=== PATIENT | female | born 2000 | race Caucasian/White ===

== ENCOUNTER 2023-04-10 01:30 | Emergency (ER) | payer BC, SELFPAY ==
[2023-04-10 01:44] VITALS: BP 139/88; PULSE 100; RESP 17; TEMP 36.7; O2SAT 96; BMI 31.6
--- NOTE | 2023-04-10 01:50 | USR_ITS ---
PROCEDURE INFORMATION: Exam: US Abdomen, Limited; Right Upper Quadrant Exam date and time: 04/10/2023 2:25 AM Age: 23 years old Clinical indication: Abdominal pain; Epigastric; Patient HX: Ruq pain, n+v plus diarrhea x 8 days. TECHNIQUE: Imaging protocol: Real time ultrasound of the abdomen with image documentation. Limited exam focused on the right upper quadrant. COMPARISON: No relevant prior studies available. FINDINGS: Liver: Normal. No masses. Gallbladder: There is gallbladder sludge. Biliary ducts: Common bile duct diameter is 4 mm. Pancreas: Click non Viz pancreas Right kidney: Normal. No mass. No hydronephrosis. Aorta: Visualized portions of the aorta and IVC are normal. US/US gall bladder [id number] IMPRESSION: There is gallbladder sludge.
--- NOTE | 2023-04-10 01:52 | ED_ITS ---
HPI - Abdominal Pain General: Chief Complaint: Abdominal Pain Stated Complaint: abdomen pain x8 days Time Seen by Provider: 04/10/23 01:32 Source: patient Mode of arrival: ambulatory Limitations: no limitations History of Present Illness: 23-year-old female states been having intermittent abdominal pain over the last 8 days states she had some intermittent vomiting and diarrhea as well. States her pain is sharp in nature when it comes and it is in her epigastric and right upper quadrant states her pain currently is a 5 out of 10 denies any worsening proving factors denies any dysuria or vaginal bleeding. Associated Symptoms: Reports diarrhea, nausea and vomiting; Denies chills, dysuria and fever(s) Review of Systems Const: Denies: fever(s), chills or body aches ENMT: Denies: throat pain or dental pain Card: Denies: chest pain Resp: Denies: dyspnea GI: Reports: abdominal pain, nausea, vomiting and diarrhea : Denies: dysuria Musc: Denies: neck pain or back pain Skin/Breast: Denies: rash Neuro: Denies: headache(s) Psych: Denies: depression Stan/Lymph: Denies: easy bruising All/Imm: Denies: urticaria PFSH ED PFSH: Medical History (Updated 04/10/23 @ 03:34 by Brenda Mcmullen MD) No pertinent past medical history Social History (Updated 04/10/23 @ 01:53 by Brenda Mcmullen MD) Substance/Drug Use: never Physical Exam Const: COMMON NORMALS: no acute distress, patient oriented x3 and healthy appearing HENMT: COMMON NORMALS: normocephalic and atraumatic HEAD & SCALP: normocephalic and atraumatic Eye: COMMON NORMALS: conjunctivae normal CONJUNCTIVA: Yes conjunctivae normal Neck/C-Spine: COMMON NORMALS: full ROM and supple Chest: COMMONS NORMALS: normal inspection of the chest and normal palpation of entire chest wall Resp: COMMON NORMALS: normal respiratory effort, No retractions, No use of accessory muscles and clear to auscultation bilaterally AUSCULTATION: clear to auscultation bilaterally Cardio: COMMON NORMALS: regular rate, regular rhythm and No murmurs present (Cardio) RATE: regular rate RHYTHM: regular rhythm GI: COMMON NORMALS: Normal to inspection, nondistended, normoactive bowel sounds present, Soft to palpation and no masses PALPATION: Yes Soft to palpation OTHER: mild ruq tenderness Extremity: COMMON NORMALS: normal to inspection and full ROM Neuro: COMMON NORMALS: patient oriented x3, moves all extremities and no focal motor deficits Psych: COMMON NORMALS: mental status grossly normal, Normal thought process present and cooperative THOUGHT PROCESS: Normal thought process present Skin: COMMON NORMALS: no rashes or lesions noted and no wounds GENERAL SKIN EXAM: no rashes or lesions noted Course Vital Signs: Vital signs: Vital Signs Temperature 98.0 F 04/10/23 01:44 Pulse Rate 100 04/10/23 01:44 Respiratory Rate 17 04/10/23 01:44 Blood Pressure 139/88 04/10/23 01:44 Pulse Oximetry 99 04/10/23 02:29 Oxygen Delivery Me thod Room Air 04/10/23 01:44 MDM - Abdominal Pain Medical Decision Making Patient presented abdominal pain vomiting she does have some dehydration she feels improved after fluids and Zofran ultrasound and CT scan are normal she is stable for discharge we will prescribe her Zofran for home and get her follow-up with surgery she is return if worsening she understands agrees to plan. Differential Diagnosis Likely abdominal pain; Unlikely acute appendicitis, calculus of kidney, diverticulitis, pancreatitis or small bowel obstruction Medical Records I reviewed the patient's medical records. Lab Data I reviewed the patient's lab results. 04/10/23 02:01 04/10/23 02:01 Labs/Radiology: Radiology Impressions Gallbladder Ultrasound 04/10/23 01:50 IMPRESSION: There is gallbladder sludge. Abdomen/Pelvis CT 04/10/23 02:51 IMPRESSION: No acute findings. Laboratory Results WBC 13.4 10^3/uL (4.0-10.0) H 04/10/23 02:01 RBC 5.24 10^6/uL (4.1-5.3) 04/10/23 02:01 Hgb 14.9 g/dL (11.5-15.3) 04/10/23 02:01 Hct 44.2 % (37.0-47.0) 04/10/23 02:01 MCV 84.4 fl (81-99) 04/10/23 02:01 MCH 28.4 pg (28.0-34.0) 04/10/23 02:01 MCHC 33.7 g/dL (30.0-36.0) 04/10/23 02:01 RDW 13.0 % (12.1-15.1) 04/10/23 02:01 Plt Count 309 10^3/cmm (130-400) 04/10/23 02:01 MPV 10.1 fL (7.4-10.4) 04/10/23 02:01 Neut % (Auto) 67.3 % 04/10/23 02:01 Lymph % (Auto) 23.7 % 04/10/23 02:01 [place] % (Auto) 7.9 % 04/10/23 02:01 Eos % (Auto) 0.6 % 04/10/23 02:01 Baso % (Auto) 0.1 % 04/10/23 02:01 Neut # (Auto) 9.04 10^3/uL (1.8-7.7) H 04/10/23 02:01 Lymph # (Auto) 3.2 10^3/uL (0.8-4.8) 04/10/23 02:01 [place] # (Auto) 1.1 10^3/uL (0.2-0.9) H 04/10/23 02:01 Eos # (Auto) 0.1 10^3/uL (0.0-0.8) 04/10/23 02:01 Baso # (Auto) 0.0 10^3/uL (0.0-0.1) 04/10/23 02:01 Nucleated RBC % (auto) 0 % 04/10/23 02:01 Nucleated RBCs # 0.0 /100WBC 04/10/23 02:01 Sodium 137 mmol/L (136-145) 04/10/23 02:01 Potassium 3.6 mmol/L (3.5-5.1) 04/10/23 02:01 Chloride 103 mmol/L (98-107) 04/10/23 02:01 Carbon Dioxide 19 mmol/L (22-29) L 04/10/23 02:01 Anion Gap 18.6 (5-19) 04/10/23 02:01 BUN 8 mg/dL (6-20) 04/10/23 02:01 Creatinine 0.6 mg/dL (0.5-0.9) 04/10/23 02:01 GFR Calculation 125.0 mL/min (90-130) 04/10/23 02:01 Glucose 111 mg/dL (65-115) 04/10/23 02:01 Calculated Osmolality 283 mOsm/kg (285-295) L 04/10/23 02:01 Calcium 9.0 mg/dL (8.5-10.5) 04/10/23 02:01 Total Bilirubin 0.6 mg/dL (0.15-1.2) 04/10/23 02:01 AST 10 U/L (0-32) 04/10/23 02:01 ALT 19 U/L (0-33) 04/10/23 02:01 Alkaline Phosphatase 75 U/L (35-105) 04/10/23 02:01 Total Protein 7.2 g/dL (6.6-8.7) 04/10/23 02:01 Albumin 4.4 g/dL (3.5-5.2) 04/10/23 02:01 Globulin 2.8 g/dL (1.3-4.6) 04/10/23 02:01 Lipase 24 U/L (13-60) 04/10/23 02:01 HCG, Qual Negative (Negative) 04/10/23 02:01 Urine Color Yellow (Yellow) 04/10/23 02:01 Urine Appearance Clear (CLEAR) 04/10/23 02:01 Urine pH 5 (5-7) 04/10/23 02:01 Ur Specific [place] 1.030 (1.005-1.030) 04/10/23 02:01 Urine Protein Neg (Negative) 04/10/23 02:01 Urine Glucose (UA) Norm (Normal) 04/10/23 02:01 Urine Ketones 3+ (Negative) H 04/10/23 02:01 Urine Blood Neg (Negative) 04/10/23 02:01 Urine Nitrate Negative (Negative) 04/10/23 02:01 Urine Bilirubin Neg (Negative) 04/10/23 02:01 Urine Urobilinogen Neg mg/dL (Negative) 04/10/23 02:01 Ur Leukocyte Esterase Negative (Negative) 04/10/23 02:01 EKG Data EKG 1: I personally reviewed and interpreted this EKG as follows: EKG interpretation date: 04/10/23 EKG interpretation time: 01:40 Interpretation: sinus tach hr [address] or t wave abnormalities qrs 100 qtc 407 Discharge Plan Discharge Patient Disposition: Home Clinical Impression: Abdominal pain, Vomiting Prescriptions: New ondansetron 4 mg tablet,disintegrating 4 mg PO Q6H PRN (Reason: nausea and vomiting) Qty: 14 0RF Discharge Orders: Discharge ED (Routine); Ordered 04/10/23 Ordered By: Brenda Mcmullen Referrals: Stone Christensen DO [Physician] - 1-3 days Gurdeep Upton MD [Primary Care Provider] - Discharge Diet: Advance as tolerated Discharge Activity: Resume usual activity Patient Instructions: Acute Nausea and Vomiting (DC), Abdominal Pain (ED) Coding Level of Care 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
[2023-04-10] MEDS: sodium chloride 0.9% 1,000 ML 999 ML IV ×2 (02:00→02:33)
[2023-04-10] MEDS: ondansetron 2 mg/ML SDV 2 mL 4 MG IVP (02:00)
[2023-04-10 02:03] LABS: Add Urine Microscopic? NO; Charge for UA Resulting for Rev
[2023-04-10 02:04] LABS: Basophils % 0.1 %; Eosinophils # 0.1 10^3/uL (0.0-0.8); Eosinophils % 0.6 %; Hematocrit 44.2 % (37.0-47.0); Hemoglobin 14.9 g/dL (11.5-15.3); Lymphocytes # 3.2 10^3/uL (0.8-4.8); Lymphocytes % 23.7 %; Mean Corpuscular HGB Conc 33.7 g/dL (30.0-36.0); Mean Corpuscular Hemoglobin 28.4 pg (28.0-34.0); Mean Corpuscular Volume 84.4 fl (81-99); Mean Platelet Volume 10.1 fL (7.4-10.4); Monocytes # 1.1 10^3/uL (0.2-0.9); Monocytes % 7.9 %; Neutrophils # 9.04 10^3/uL (1.8-7.7); Neutrophils % 67.3 %; Nucleated Red Blood Cells % 0 %; Platelet Count 309 10^3/cmm (130-400); Red Blood Count 5.24 10^6/uL (4.1-5.3); White Blood Count 13.4 10^3/uL (4.0-10.0)
[2023-04-10 02:23] LABS: Bilirubin Urine Neg (Negative); Blood Urine Neg (Negative); Glucose Urine UA Norm (Normal); HCG, Serum Qual Negative (Negative); Ketones Urine 3+ (Negative); Leukocyte Esterase Urine Negative (Negative); Nitrate Urine Negative (Negative); Protein Urine Neg (Negative); Urine Appearance Clear (CLEAR); Urine Color Yellow (Yellow); Urobilinogen Urine Neg (Negative); pH Urine 5 (5-7)
[2023-04-10 02:24] LABS: Alanine Aminotransferase 19 U/L (0-33); Albumin Level 4.4 g/dL (3.5-5.2); Alkaline Phosphatase 75 U/L (35-105); Anion Gap 18.6 (5-19); Aspartate Amino Transferase 10 U/L (0-32); Blood Urea Nitrogen 8 mg/dL (6-20); Carbon Dioxide 19 mmol/L (22-29); Chloride 103 mmol/L (98-107); Globulin 2.8 g/dL (1.3-4.6); Glucose 111 mg/dL (65-115); Lipase 24 U/L (13-60); Osmolality Calculated 283 mOsm/kg (285-295); Potassium 3.6 mmol/L (3.5-5.1); Sodium 137 mmol/L (136-145); Total Bilirubin 0.6 mg/dL (0.15-1.2); Total Protein 7.2 g/dL (6.6-8.7)
[2023-04-10 02:29] VITALS: O2SAT 99
--- NOTE | 2023-04-10 02:51 | CTR_ITS ---
PROCEDURE INFORMATION: Exam: CT Abdomen And Pelvis With Contrast Exam date and time: 04/10/2023 2:59 AM Age: 23 years old Clinical indication: Abdominal pain; Localized; Right upper quadrant (ruq); Patient HX: Intractable ruq/epigastric pain; Additional info: Abd pain TECHNIQUE: Imaging protocol: Computed tomography of the abdomen and pelvis with contrast. Radiation optimization: All CT scans at this facility use at least one of these dose optimization techniques: automated exposure control; mA and/or kV adjustment per patient size (includes targeted exams where dose is matched to clinical indication); or iterative reconstruction. Contrast material: OMNI 350; Contrast volume: 100 ml; Contrast route: INTRAVENOUS (IV); REPORTING DATA: Count of CT and Cardiac NM exams in prior 12 months: This patient has received 0 known CTs and 0 known cardiac nuclear medicine studies in the 12 months prior to the current study. COMPARISON: US gall bladder [id number] 04/10/2023 2:25 AM RADIATION DOSE METRICS: Total DLP (mGy-cm): 753.31 FINDINGS: Lungs: The lung bases are clear. No effusion Liver: Normal. No mass. Gallbladder and bile ducts: No wall thickening, pericholecystic fluid or stones. Pancreas: Normal. No ductal dilation. Spleen: Normal. No splenomegaly. Adrenal glands: Normal. No mass. Kidneys and ureters: Normal. No hydronephrosis. Stomach and bowel: Unremarkable. No obstruction. No mucosal thickening. Appendix: No evidence of appendicitis. Intraperitoneal space: Unremarkable. No free air. No significant fluid collection. Vasculature: Unremarkable. No abdominal aortic aneurysm. Lymph nodes: Unremarkable. No enlarged lymph nodes. Urinary bladder: Unremarkable as visualized. Reproductive: Unremarkable as visualized. Bones/joints: Unremarkable. No acute fracture. Soft tissues: Unremarkable. CT/CT abdomen pelvis w con* [id number] IMPRESSION: No acute findings.
[2023-04-10] MEDS: iohexol 350 mg/mL 500 mL Btl (per mL) IV (03:09)
[2023-04-10 04:22] VITALS: BP 135/67; PULSE 73; O2SAT 100
--- NOTE | 2023-04-10 07:35 | DCPLANNER ---
Addendum entered by Margaux Esparza 04/29/23 10:40: manager trust received the following message from the general surgery clinic regarding follow up appointment: mailed letter On 04/15/23 @ 12:39 Casey Hayden Wrote To General Surgery Front Off left message 04/15 On 04/14/23 @ 14:00 Casey Hayden Wrote To General Surgery Front [facility] left message 04/14 Addendum entered by Margaux Esparza 04/21/23 10:45: manager trust received the following messages from the general surgery clinic regarding follow up appointment: left message 04/15 On 04/14/23 @ 14:00 Casey Hayden Wrote To General Surgery Front Off left message 04/14 Original Note: manager trust had message to schedule a follow up appointment for patient with general surgery. manager trust sent patients information to the front office staff at general surgery. Patients information will be printed and reviewed. Clinic will call patient with appointment information.
== END 2023-04-10 04:23 | disposition home or self-care (01) ==
PROVIDERS: Emergency Provider Emergency Medicine; PCP Family Medicine
DX: R11.11 Vomiting without nausea (principal); R10.11 Right upper quadrant pain; R10.13 Epigastric pain
CPT/HCPCS: 74177; 76705; 80053; 81003; 83690; 84703; 85025; 96361; 96374; 99285; J2405; J7030; Q9967